=== PATIENT | male | born 1975 | race Caucasian/White ===

== ENCOUNTER 2024-01-19 16:39 | Emergency (ER) | payer OTHER ==
[~2024-01-19] VITALS: Ht 177.8 cm; Wt 104.3 kg
[2024-01-19] MEDS ORDERED: AMOX-430 PO (17:31)
[2024-01-19] MEDS ORDERED: AMOXICILLIN-CLAVUL 875-125MG TABLET ONE (17:34)
[2024-01-19] MEDS: AMOXICILLIN-CLAVUL 875-125MG TABLET PO ONE (17:36)
[2024-01-19 17:44] VITALS: BP 140/72; TEMP 98.1; O2SAT 97
== END 2024-01-19 17:44 | disposition home or self-care (01) ==
LOC: ER 16:43
DX: I88.8 Other nonspecific lymphadenitis (principal); Z79.899 Other long term (current) drug therapy
CPT/HCPCS: A4606; A4663

== ENCOUNTER 2024-02-02 23:29 | Emergency (ER) | payer OTHER ==
[~2024-02-02] VITALS: Ht 177.8 cm; Wt 102.1 kg
[~2024-02-02 23:29] MED LIST: AMOX-430 PO
[2024-02-03] MEDS ORDERED: SULF1TAB48 PO (00:07)
[2024-02-03] MEDS ORDERED: SULFAMETH/TRIMETH 800/160 MG TABLET ONE (00:08)
[2024-02-03] MEDS: SULFAMETH/TRIMETH 800/160 MG TABLET PO ONE (00:13)
[2024-02-03 00:16] VITALS: BP 135/93; O2SAT 99
== END 2024-02-03 00:17 | disposition home or self-care (01) ==
LOC: ER 23:30
DX: L02.92 Furuncle, unspecified (principal); F17.200 Nicotine dependence, unspecified, uncomplicated; Z79.899 Other long term (current) drug therapy
CPT/HCPCS: A4606; A4663